=== PATIENT | male | born 1960 | race African-American/Black ===

== ENCOUNTER 2019-01-22 00:23 | Emergency (ER) | payer MEDICAID ==
[~2019-01-22] VITALS: Ht 182.9 cm; Wt 95.3 kg
[2019-01-22] MEDS ORDERED: IRBESARTAN150 MG PO (00:49)
[2019-01-22 00:50] VITALS: BP 158/105
--- NOTE | 2019-01-22 00:50 | NUR ---
ED Nurse Note: PT walked in to ED for C/O chest pain and pressure/ tightness. pt also reports headache and back pain since 1600 yesterday. pt is alert x4
--- NOTE | 2019-01-22 01:06 | Emergency Room Report ---
History of Present Illness General Chief Complaint: Chest Pain Source: Patient Present Illness HPI This is a 58-year-old male with history of high blood pressure. He presents with chief complaint of headache and chest pain and back pain. Onset was at 4 PM. This is about 9 hours prior to arrival. Patient said he had headache first. Throbbing and sharp in nature. He has nausea but no vomiting. He said he has sharp back pain that radiates to his chest. He said he was sweaty for couple of hours. Worse with exertion. No radiation. No fever chills. No urinary complaint of abdominal pain. Never had this problem before. He rested it and get me better. He could not sleep because of the pains that he came here. Never had this problem before. Prescribed pain is 9 out of 10. Allergies: Coded Allergies: No Known Allergies (Unverified , 01/22/19) Patient History Past Medical History: see triage record, old chart reviewed, HTN Past Surgical History: none Pertinent Family History: none Social History: Denies: smoking Immunizations: other Reviewed Nursing Documentation: PMH: Agreed; PSxH: Agreed Nursing Documentation-PMH Past Medical History: No History, Except For Hx Hypertension: Yes Hx Gastrointestinal Problems: Yes - LIVER CIRRHOSIS, HEP C Review of Systems Constitutional: Reports: malaise Eye: Denies: eye pain, blurred vision ENT: Denies: ear pain, nose congestion, throat swelling Respiratory: Denies: cough, shortness of breath Cardiovascular: Reports: chest pain; Denies: palpitations Gastrointestinal: Denies: abdominal pain, diarrhea, nausea, vomiting Musculoskeletal: Denies: back pain, joint pain Skin: Denies: rash Neurological: Reports: headache; Denies: numbness Endocrine: Denies: increased thirst, increased urine Hematologic/Lymphatic: Denies: easy bruising All Other Systems: negative except mentioned in HPI Physical Exam Vital Signs Date Time Temp Pulse Resp B/P (MAP) Pulse Ox O2 Delivery O2 Flow Rate FiO2 01/22/19 00:44 98.4 103 18 143/105 (118) 97 Room Air Vitals with high blood pressure Sp02 EP Interpretation: reviewed, normal General Appearance: well appearing, no apparent distress, alert Head: normocephalic, atraumatic Eyes: bilateral eye PERRL, bilateral eye EOMI ENT: hearing grossly normal, normal pharynx Neck: full range of motion, supple, no meningismus Respiratory: chest non-tender, lungs clear, normal breath sounds Cardiovascular #1: regular rate, rhythm, no murmur Gastrointestinal: normal bowel sounds, non tender, no mass, no organomegaly, no bruit, non-distended Musculoskeletal: back normal, normal range of motion, gait/station normal Psychiatric: mood/affect normal Medical Decision Making Diagnostic Impression: Primary Impression: Head ache Qualified Codes: R51 - Headache Additional Impressions: Chest pain Qualified Codes: R07.9 - Chest pain, unspecified Hypertension Qualified Codes: I10 - Essential (primary) hypertension ER Course Presents with headache and chest pain. Blood pressure is elevated. I see no evidence of ACS, PE, dissection. Troponin is negative. EKG is nonischemic. His chest pain been ongoing for 9 hours. 2 set of troponin negative. Otherwise low risk for CAD. His headache showed no evidence of bleed or TIA or CVA. Pain is better controlled now. Will discharge home. We will increase his Avapro to 300 mg a day. EKG Diagnostic Results Rate: normal Rhythm: NSR ST Segments: no acute changes Rhythm Strip Diag. Results EP Interpretation: yes Rate: 65 Rhythm: NSR, no PVC's, no ectopy CT/MRI/US Diagnostic Results CT/MRI/US Diagnostic Results : Imaging Test Ordered: CT head Impression Neg per radiologist Last Vital Signs Date Time Temp Pulse Resp B/P (MAP) Pulse Ox O2 Delivery O2 Flow Rate FiO2 01/22/19 00:44 98.4 103 18 143/105 (118) 97 Room Air Status: improved Disposition: HOME, SELF-CARE Condition: Stable Scripts Irbesartan* (AVAPRO*) 300 Mg Tablet 300 MG ORAL DAILY, #90 TAB Prov: Mich Miles MD 01/22/19 Ibuprofen* (MOTRIN*) 600 Mg Tablet 600 MG ORAL THREE TIMES A DAY, #30 TAB 0 Refills Prov: Mich Miles MD 01/22/19 Referrals: [facility],REFERRING (PCP) Patient Instructions: Nonspecific Chest Pain Additional Instructions: Increase your Avapro to 300 mg a day. Follow-up your doctor in a week for recheck. 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 You may need a stress test. Return if symptoms worsen. Mich Miles MD Jan 22, 2019 01:06
[2019-01-22 01:15] LABS: BASOPHILS % (AUTO) 2.3 % (0.0-2.0); EOSINOPHILS % (AUTO) 1.2 % (0.0-3.0); HEMATOCRIT 46.1 % (42.0-52.0); HEMOGLOBIN 15.3 G/DL (14.2-18.0); LYMPHOCYTES % (AUTO) 22.8 % (20.0-45.0); MEAN CORPUSCULAR VOLUME 89 FL (80-99); MONOCYTES % (AUTO) 15.1 % (1.0-10.0); NEUTROPHILS % (AUTO) 58.7 % (45.0-75.0); PLATELET COUNT 138 K/UL (150-450); RED BLOOD COUNT 5.19 M/UL (4.70-6.10); RED CELL DISTRIBUTION WIDTH 12.3 % (11.6-14.8); WHITE BLOOD COUNT 3.7 K/UL (4.8-10.8)
[2019-01-22] MEDS ORDERED: HYDROmorphone 1mg/ml Carpuject IVP ONE (01:15)
[2019-01-22] MEDS ORDERED: Nitroglycerin Subl 0.4mg tab SL PRN (01:15)
[2019-01-22 01:16] LABS: APPEARANCE,URINE CLEAR; BILIRUBIN, URINE NEGATIVE (NEGATIVE); COLOR,URINE PALE YELLOW; GLUCOSE, URINE (UA) NEGATIVE (NEGATIVE); KETONES,URINE NEGATIVE (NEGATIVE); LEUKOCYTE ESTERASE ,URINE NEGATIVE (NEGATIVE); NITRITE,URINE NEGATIVE (NEGATIVE); PH,URINE 7 (4.5-8.0); PROTEIN,URINE NEGATIVE (NEGATIVE); UROBILINOGEN,URINE 1 MG/DL (0.0-1.0)
--- NOTE | 2019-01-22 01:20 | NUR ---
ED Nurse Note: Blood and urine sample sent down to lab
[2019-01-22 01:25] LABS: ANION GAP 10 mmol/L (5-15); BLOOD UREA NITROGEN 14 mg/dL (7-18); CALCIUM 8.5 MG/DL (8.5-10.1); CARBON DIOXIDE 27 MMOL/L (21-32); CHLORIDE 103 MMOL/L (98-107); CREATININE 1.1 MG/DL (0.55-1.30); POTASSIUM 3.7 MMOL/L (3.5-5.1); SODIUM 140 MMOL/L (136-145)
[2019-01-22 01:36] LABS: ALANINE AMINOTRANSFERASE 210 U/L (12-78); ALBUMIN 3.8 G/DL (3.4-5.0); ALBUMIN/GLOBULIN RATIO 0.9 (1.0-2.7); ALKALINE PHOSPHATASE 102 U/L (46-116); ASPARTATE AMINO TRANSFERASE 194 U/L (15-37); BILIRUBIN,TOTAL 1.1 MG/DL (0.2-1.0)
[2019-01-22 01:39] LABS: BILIRUBIN,DIRECT 0.4 MG/DL (0.0-0.3)
--- NOTE | 2019-01-22 01:50 | NUR ---
ED Nurse Note: CT went to Ct
--- NOTE | 2019-01-22 02:08 | NUR ---
ED Nurse Note: PT returned back from Ct
--- NOTE | 2019-01-22 02:50 | Diagnostic Imaging Report ---
Indications: Headache for 2 hours Technique: Spiral acquisitions obtained through the brain. Angled axial and coronal 5 x 5 mm slices were reconstructed. Total dose length product 1426 mGycm. CTDI vol(s) 62 mGy. Dose reduction achieved using automated exposure control Comparison: None. Findings: No acute intracranial hemorrhage or edema. No mass effect or midline shift. There is periventricular deep white matter low-attenuation, consistent with chronic microvascular ischemic change. Ventricles and extra-axial CSF spaces are normal in caliber. The visualized orbits and sinuses are unremarkable. The mastoids are clear. The calvarium is intact Impression: Mild chronic changes, as described Negative for acute intracranial bleed or mass effect This agrees with the preliminary interpretation provided overnight by [facility] teleradiology service. The CT scanner at [facility] is accredited by the [employer] and the scans are performed using protocols designed to limit radiation exposure to as low as reasonably achievable to attain images of sufficient resolution adequate for diagnostic evaluation.
--- NOTE | 2019-01-22 03:22 | NUR ---
ED Nurse Note: repeat troponin sent down to lab
[2019-01-22 03:23] VITALS: BP 145/100
[2019-01-22] MEDS ORDERED: IBUPROFEN600 MG ORAL (03:48)
[2019-01-22] MEDS ORDERED: AVAPRO300 MG ORAL (03:48)
[2019-01-22 03:54] VITALS: BP 149/98
--- NOTE | 2019-01-22 03:54 | NUR ---
ER DISCHARGE NOTE: Patient is cleared to be discharged per ERMD, pt is aox4, on room air, with stable vital signs. pt was given dc and prescription instructions, pt was able to verbalize understanding, pt id band and iv site removed without complications. pt is able to ambulate with steady gait. pt took all belongings.
--- NOTE | 2019-01-22 09:09 | Diagnostic Imaging Report ---
Indication: Chest pain Technique: One view of the chest Comparison: none Findings: The heart size is normal. Lungs and pleural spaces are clear. The aorta is tortuous. The upper mediastinum is unremarkable Impression: No acute process
--- NOTE | 2019-01-22 13:03 | Cardiology Report ---
APPROVED REPORT EKG Measurement Heart [id number] Normal sinus rhythm Left axis deviation Voltage criteria for left ventricular hypertrophy Abnormal ECG
== END 2019-01-22 03:54 | disposition home or self-care (01) ==
LOC: EMR 01:01
DX: R51 Headache (principal); R07.9 Chest pain, unspecified; I10 Essential (primary) hypertension; M54.9 Dorsalgia, unspecified; Z86.19 Personal history of other infectious and parasitic diseases
CPT/HCPCS: 36415; 70450; 71045; 80053; 80307; 81003; 82248; 84484; 85025; 93005; 96361; 96374; 96375; J0360; J1170; J2405; J7030; Z7502; 99284